=== PATIENT | male | born 1990 ===

== ENCOUNTER 2019-11-06 14:45 | Outpatient (REF) | payer MEDICAID, SELFPAY ==
[2019-11-06 23:08] LABS: TSH (W/Ref FT4) 0.35 uIU/mL (0.36-3.74)
[2019-11-06 23:27] LABS: FREE T4 0.86 ng/dL (0.76-1.46)
== END 2019-11-06 15:05 ==
LOC: NCHCN 14:45
PROVIDERS: PCP Nurse Practitioner Family; Visit Provider Nurse Practitioner Family
DX: Z13.29 Encounter for screening for other suspected endocrine disorder (principal)
CPT/HCPCS: 84439; 84443

== ENCOUNTER 2020-11-03 09:29 | Outpatient (REF) | payer MEDICAID, SELFPAY ==
[2020-11-03 13:58] LABS: ALT 23 U/L (16-63); AST 12 U/L (15-37); Alkaline Phosphatase 69 U/L (46-116); Anion Gap 9.5 mmol/L (3-11); BUN 10 mg/dL (7-18); Bilirubin, Total 0.5 mg/dL (0.2-1.0); CO2 28.5 mmol/L (21.0-32.0); CREATININE 1.05 mg/dL (0.70-1.30); Calcium 8.6 mg/dL (8.5-10.1); Chloride 103 mmol/L (98-107); Glucose 91 mg/dL (74-106); Sodium 141 mmol/L (136-145); TSH (W/Ref FT4) 0.49 uIU/mL (0.36-3.74); Total Protein 7.2 g/dL (6.4-8.2)
== END 2020-11-03 09:49 ==
LOC: NCHCN 09:29
PROVIDERS: PCP Nurse Practitioner Family; Visit Provider Nurse Practitioner Family
DX: R94.6 Abnormal results of thyroid function studies (principal); F32.9 Major depressive disorder, single episode, unspecified
CPT/HCPCS: 80053; 84443

== ENCOUNTER 2021-03-02 10:50 | Outpatient (REF) | payer MEDICAID, SELFPAY ==
[2021-03-03 11:29] LABS: COVID-19 RT-PCR UVMMC Result Negative (Negative)
== END 2021-03-02 10:51 | disposition home or self-care (01) ==
LOC: NCHCN 10:50
PROVIDERS: PCP Nurse Practitioner Family; Visit Provider Nurse Practitioner Family
DX: Z20.822 Contact with and (suspected) exposure to COVID-19 (principal)
CPT/HCPCS: U0003

== ENCOUNTER 2022-11-29 16:08 | Outpatient (REF) | payer MEDICAID, SELFPAY ==
[2022-11-29 15:27] LABS: TSH (W/Ref FT4) 0.59 uIU/mL (0.36-3.74)
== END 2022-11-29 16:09 | disposition home or self-care (01) ==
LOC: NCHCN 16:08
PROVIDERS: PCP Nurse Practitioner Family; Visit Provider Nurse Practitioner Family
DX: E23.0 Hypopituitarism (principal)
CPT/HCPCS: 84443

== ENCOUNTER 2023-12-27 15:42 | Outpatient (REF) | payer MEDICAID, SELFPAY ==
[2023-12-27 15:13] LABS: Anion Gap 10.1 mmol/L (3-11); BUN 11 mg/dL (7-18); CO2 27.9 mmol/L (21.0-32.0); Calcium 9.3 mg/dL (8.5-10.1); Calculated LDL 80 mg/dL (<100); Chloride 104 mmol/L (98-107); Cholesterol 141 mg/dL (<200); Estimated GFR 100.66 (mL/min/1.73m2); Glucose 88 mg/dL (74-106); HDL Cholesterol 51 mg/dL (40-60); Potassium 3.6 mmol/L (3.5-5.1); Sodium 142 mmol/L (136-145); TSH (W/Ref FT4) 0.65 uIU/mL (0.36-3.74); Triglyceride 52 mg/dL (<150)
== END 2023-12-27 15:43 | disposition home or self-care (01) ==
LOC: NCHCN 15:42
PROVIDERS: PCP Nurse Practitioner Family; Visit Provider Nurse Practitioner Family
DX: R94.6 Abnormal results of thyroid function studies (principal); Z13.220 Encounter for screening for lipoid disorders
CPT/HCPCS: 80048; 80061; 84443